=== PATIENT | female | born 1980 | race Two or more races ===

== ENCOUNTER 2018-07-20 10:01 | Emergency (ER) | payer OTHER ==
--- NOTE | 2018-07-20 10:20 | ED Physician Documentation ---
PD HPI UPPER EXT INJURY - Stated complaint Stated Complaint: FINGERS HURT - Chief complaint Chief Complaint: Ext Problem - History obtained from History obtained from: Patient - History of Present Illness Location: Right, Left, Finger (finger tips at DIP joints dorsally hurting after lifting multiple plywood sheets while [place] 3 days ago. No abrupt injury. Pain with swelling dorsal DIPs persists.) Type of injury: No: Blunt / blow Where injury occurred: Work Timing - onset: How many days ago (3) Timing - duration: Days (3) Timing - details: Gradual onset (just sore at end of day that day, and the developed swelling and tenderness the following day and has persisted.) Worsened by: Moving (extending at fingers DIP joints), Palpating Associated symptoms: Swelling. No: Weakness, Numbness Similar symptoms before: Has not had sx before Recently seen: Not recently seen Review of Systems Constitutional: denies: Fever, Chills Nose: denies: Rhinorrhea / runny nose, Congestion Throat: denies: Sore throat Respiratory: denies: Cough GI: denies: Nausea, Vomiting Skin: denies: Abrasion (s) PD PAST MEDICAL HISTORY - Past Medical History Past Medical History: No - Past Surgical History Past Surgical History: Yes /GOL[employer]: section, Breast implants - Present Medications Home Medications: Ambulatory Orders Medication Instructions Recorded Confirmed Dexamethasone [Decadron] 4 mg PO DAILY #5 tablet 07/20/18 Tramadol HCl 50 mg PO Q6H PRN #20 tablet 07/20/18 - Allergies Allergies/Adverse Reactions: Allergies Allergy/AdvReac Type Severity Reaction Status Date / Time amoxicillin Allergy Unknown Verified 07/20/18 10:10 - Social History Does the pt smoke?: Yes Smoking Status: Current every day smoker Does the pt drink ETOH?: No Does the pt have substance abuse?: No PD ED PE NORMAL - Vitals Vital signs reviewed: Yes - General General: Alert and oriented X 3, Well developed/nourished - Derm Derm: Normal color, Warm and dry - Extremities Extremities: Other (the ends of all fingers (not thumbs) with tenderness, mild local swelling and fluctuance wihtout redness nor skin changes/abrasion at the proximal parts of the distal phalanges. Nailbeds are okay. Proximal joints are okay. She can extend fully, just painful. ) - Neuro Neuro: No motor deficit, No sensory deficit Results - Vitals Vitals: Vital Signs - 24 hr 07/20/18 07/20/18 10:08 11:11 Temperature 37 C Heart Rate 100 68 Respiratory 18 18 Rate Blood Pressure 144/71 H 137/75 H O2 Saturation 72 L 99 Oxygen O2 Source Room air PD MEDICAL DECISION MAKING - ED course Complexity details: considered differential (interesting to have inflammation and some swelling at the dorsum of all 8 fingers at proximal part of distal phalanges. Seems c/w tendonitis at extensor insertions, just all of them together is unusual. 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 Continue some ibuprofen 2-3 tablets 2-3 times a day for the next several days. Add Decadron steroid anti-inflammatory daily for the next 5 days. Add Tylenol or tramadol if needed for pains. Recheck if not improved over the next week. Forms: Activity restrictions Discharge Date/Time: 07/20/18 11:11
[2018-07-20] MEDS ORDERED: traMADol 50 MG TABLET PO STA (10:51)
[2018-07-20] MEDS ORDERED: DEXAMETHASONE 10 MG/ML VIAL PO STA (10:51)
[2018-07-20 11:13] VITALS: BP 137/75
== END 2018-07-20 11:11 | disposition home or self-care (01) ==
LOC: ED 10:01
DX: M70.842 Other soft tissue disorders related to use, overuse and pressure, left hand (principal); M70.841 Other soft tissue disorders related to use, overuse and pressure, right hand; Y93.H3 Activity, building and construction; Y99.0 Civilian activity done for income or pay; F17.200 Nicotine dependence, unspecified, uncomplicated
CPT/HCPCS: 1040M; 99283; A9270